=== PATIENT | female | born 1960 | race Two or more races ===

== ENCOUNTER 2017-09-15 19:45 | Emergency (ER) | payer MEDICAID ==
[2017-09-15] MEDS ORDERED: NICARDIPINE HCL RTU, ISO-OS 20 MG/200 ML RTUINJ IV PRN (21:13)
--- NOTE | 2017-09-15 21:14 | ER Document Report ---
ED Dizziness/Weakness - General Mode of Arrival: Ambulatory Information source: Patient TRAVEL OUTSIDE OF THE U.S. IN LAST 30 DAYS: No <RICHARD GILMAN - Last Filed: 09/16/17 02:49> <JEROME MOORE - Last Filed: 09/16/17 03:20> - General Chief Complaint: Dizziness Stated Complaint: BLOOD PRESSURE PROBLEMS Time Seen by Provider: 09/15/17 20:57 Notes: Patient is a 57 year old female with hypertension presents to the emergency department complaining of dizziness and a headache onset yesterday. Patient is vague with her history. Patient states she has taken an aspirin for her headache. Patient denies nausea, vomiting, diarrhea, abdominal pain or inability to move extremities. Patient states she has hypertension but has stopped taking medications years ago. (RICHARD GILMAN) - Related Data Allergies/Adverse Reactions: No Known Allergies Allergy (Unverified 09/16/17 00:24) Past Medical History - General Information source: Patient - Social History Smoking Status: Unknown if Ever Smoked - Past Medical History Cardiac Medical History: Reports: Hx Hypertension - no longer takes medication for <RICHARD GILMAN - Last Filed: 09/16/17 02:49> - Social History Family History: Reviewed & Not Pertinent Malignancy Medical History: Reports: Hx Cervical Cancer, Hx Ovarian Cancer <JEROME MOORE - Last Filed: 09/16/17 03:20> Review of Systems - Review of Systems Constitutional: No symptoms reported EENT: No symptoms reported Cardiovascular: See HPI, Dizziness Respiratory: No symptoms reported Gastrointestinal: No symptoms reported Genitourinary: No symptoms reported Female Genitourinary: No symptoms reported Musculoskeletal: No symptoms reported Skin: No symptoms reported Hematologic/Lymphatic: No symptoms reported Neurological/Psychological: See HPI, Headaches -: Yes All other systems reviewed and negative <RICHARD GILMAN - Last Filed: 09/16/17 02:49> Physical Exam - Vital signs Interpretation: Hypertensive, Bradycardic, Tachypneic - HEENT Head: Normocephalic, Atraumatic Conjunctiva: Normal Cornea: Normal Mucous membranes: Dry - Respiratory Respiratory status: No respiratory distress Chest status: Nontender Breath sounds: Normal - Cardiovascular Rhythm: Regular, Bradycardia - Abdominal Inspection: Normal Distension: No distension Bowel sounds: Normal Tenderness: Nontender Organomegaly: No organomegaly - Back Back: Normal, Nontender - Extremities General upper extremity: Normal inspection, Nontender, Normal color, Normal ROM , Normal temperature General lower extremity: Normal inspection, Nontender, Normal color, Normal ROM , Normal temperature, Normal weight bearing. No: Sushil's sign - Neurological Neuro grossly intact: Yes Cognition: Normal Orientation: AAOx4 Nestor Coma Scale Eye Opening: Spontaneous Nestor Coma Scale Verbal: Oriented Cordell Coma Scale Motor: Obeys Commands Nestor Coma Scale Total: 15 Speech: Normal Motor strength normal: LUE, RUE, LLE, RLE Sensory: Normal - Psychological Associated symptoms: Normal affect, Normal mood - Skin Skin Temperature: Warm Skin Moisture: Dry Skin Color: Normal <JEROME MOORE - Last Filed: 09/16/17 03:20> - Vital signs Vitals: Temp Pulse Resp BP Pulse Ox 98.6 F 43 L 19 240/68 H 100 09/15/17 20:27 09/15/17 20:27 09/15/17 20:27 09/15/17 20:27 09/15/17 20:27 Course - Laboratory Result Diagrams: 09/15/17 21:13 09/15/17 21:13 - Consults Dr. Valencia Time consulted: 21:15 - Consulted Dr. Valencia, recommended a nicardipine drip. Dr. Valencia. Time consulted: 21:37 - Reviewed EKG and determined heart block. Recommends repeating EKG when blood pressure decreases. [facility] Time consulted: 23:34 - [facility] accepts [facility]inet for transfer. [employer] Recommend stopping nicardipine starting hydralazine. <RICHARD GILMAN - Last Filed: 09/16/17 02:49> - Laboratory Result Diagrams: 09/15/17 21:13 09/15/17 21:13 <JEROME MOORE - Last Filed: 09/16/17 03:20> - Re-evaluation Re-evalutation: 09/15/17 22:17 Called [facility] who stated they do not have any ICU or IMCU beds. (RICHARD GILMAN) 09/16/17 01:05 Patient is a 57-year-old female who comes in complaining of dizziness for the last 2 days. Worse with movement. Patient is noted to be bradycardic with complete heart block on EKG. She is also hypertensive with a blood pressure of 260/100. Patient is supposed to take blood pressure medications but has not for years and does not have a primary care doctor. Patient initially denied any other medical problems and then later told nursing staff that she had a history of cervical and ovarian cancer which has been treated and she is not actively getting treatment for. Patient was discussed with cardiology here who initially recommended nicardipine drip and Lasix. This was initiated and patient's blood pressure came down. Heart rate may remain the same. 2 more EKGs were performed with same finding of complete heart block. Patient was discussed with [facility] who does not have any beds. [facility] was contacted. No beds available. Patient was discussed with Dr. Demarcus Duncan, who will accept the patient for transport. There were initially no beds available. Recommends stopping nicardipine drip and giving hydralazine if needed. Findings were discussed with patient as well as need for transfer due to complete heart block and no availability of electrophysiology cardiology here. Patient is agreeable to this plan. Patient was going to go by ground but there is no ground transport available via MICU truck. According to [facility] protocol, patient will be transported via air. Patient is agreeable to this plan. She has remained stable in the emergency department and her blood pressure has trended down nicely. Of note, no acute findings on blood work, chest x-ray, or head CT. Stable at time of transfer to [facility]. (JEROME MOORE) - Vital Signs Vital signs: Temp Pulse Resp BP Pulse Ox 98.3 F 43 L 16 184/77 H 100 09/16/17 01:02 09/15/17 20:27 09/16/17 01:02 09/16/17 01:02 09/16/17 01:02 - Laboratory Laboratory results interpreted by me: 09/15/17 09/15/17 21:13 21:13 RDW 14.2 H Glucose 120 H Critical Care Note - Critical Care Note Total time excluding time spent on procedures (mins): 120 - Evaluation and management of hypertensive crisis, symptomatic bradycardia with complete heart block, consultation with specialist, coordination of transfer, multiple re- evaluations, counseling of patient family <EJROME MOORE - Last Filed: 09/16/17 03:20> Discharge <RICHARD GIMLAN - Last Filed: 09/16/17 02:49> <JEROME MOORE - Last Filed: 09/16/17 03:20> - Discharge Clinical Impression: Complete heart block, Hypertensive urgency, Dizziness Condition: Stable Disposition: [facility] Scribe Attestation: 09/16/17 03:20 I personally performed the services described in the documentation, reviewed and edited the documentation which was dictated to the scribe in my presence, and it accurately records my words and actions. (JEROME MOORE) Scribe Documentation - Scribe Written by Yousufe:: Donal Sy, 09/15/2017 21:20 acting as scribe for :: Skip <RICHARD GILMAN - Last Filed: 09/16/17 02:49>
[2017-09-15] MEDS ORDERED: FUROSEMIDE INJ/PF 40 MG/4 ML SDV IV ONE (21:16)
[2017-09-15 21:31] LABS: ABSOLUTE EOSINOPHILS # (AUTO) 0.1 10^3/uL (0.0-0.6); ABSOLUTE LYMPHOCYTES (AUTO) 2.4 10^3/uL (0.5-4.7); ABSOLUTE MONOCYTES (AUTO) 0.4 10^3/uL (0.1-1.4); ABSOLUTE NEUT (AUTO) 3.3 10^3/uL (1.7-8.2); BASOPHILS % (AUTO) 0.7 % (0-2); EOSINOPHILS % (AUTO) 1.7 % (0-6); HEMATOCRIT 40.2 % (36.0-47.0); HEMOGLOBIN 13.9 g/dL (12.0-15.5); LYMPHOCYTES % (AUTO) 38.4 % (13-45); MEAN CORPUSCULAR HEMOGLOBIN 29.9 pg (27.0-33.4); MEAN CORPUSCULAR HGB CONC 34.6 g/dL (32.0-36.0); MEAN CORPUSCULAR VOLUME 86 fl (80-97); MONOCYTES % (AUTO) 5.9 % (3-13); PLATELET COUNT 290 10^3/uL (150-450); RED BLOOD COUNT 4.66 10^6/uL (3.72-5.28); RED CELL DISTRIBUTION WIDTH 14.2 % (11.5-14.0); SEGMENTED NEUTROPHILS % (AUTO) 53.3 % (42-78); TOTAL CELLS COUNTED % (AUTO) 100 %; WHITE BLOOD COUNT 6.3 10^3/uL (4.0-10.5)
[2017-09-15 21:41] LABS: INTERNATIONAL RATION (INR) 1.03; PROTHROMBIN TIME 14.1 SEC (11.4-15.4)
[2017-09-15 21:50] LABS: ALANINE AMINOTRANSFERASE 25 U/L (9-52); ALBUMIN 4.4 g/dL (3.5-5.0); ALKALINE PHOSPHATASE 66 U/L (38-126); ANION GAP 11 (5-19); ASPARTATE AMINO TRANSFERASE 31 U/L (14-36); BILIRUBIN,DIRECT 0.2 mg/dL (0.0-0.4); BILIRUBIN,TOTAL 1.2 mg/dL (0.2-1.3); BLOOD UREA NITROGEN 15 mg/dL (7-20); CALCIUM 9.6 mg/dL (8.4-10.2); CARBON DIOXIDE 30 mmol/L (22-30); CHLORIDE 103 mmol/L (98-107); CREATINE KINASE 59 U/L (30-135); GLUCOSE 120 mg/dL (75-110); SODIUM 144.4 mmol/L (137-145); TOTAL PROTEIN 7.2 g/dL (6.3-8.2)
[2017-09-15 22:02] LABS: CREATINE KINASE MB 0.26 ng/mL (<4.55)
[2017-09-15 22:05] LABS: TROPONIN I < 0.012 ng/mL
--- NOTE | 2017-09-15 22:12 | RADIOLOGY REPORT (SQ) ---
EXAM DESCRIPTION: CT HEAD WITHOUT COMPLETED DATE/TIME: 09/15/2017 10:02 pm REASON FOR STUDY: Head, HTN COMPARISON: None. TECHNIQUE: Axial images acquired through the brain without intravenous contrast. Images reviewed wi th bone, brain and subdural windows. Images stored on PACS. All CT scanners at this facility use dose modulation, iterative reconstruction, and/or weight based d osing when appropriate to reduce radiation dose to as low as reasonably achievable (ALARA). [facility]: Dose Right [facility]: CareDose [facility]: Dose Right [facility]: Teradose 4D [facility]: [place] RADIATION DOSE: CT Rad equipment meets quality standard of care and radiation dose reduction techniq ues were employed. CTDIvol: 55.2 mGy. DLP: 1056 mGy-cm. mGy. LIMITATIONS: None. FINDINGS: VENTRICLES: Normal size and contour. CEREBRUM: No masses. No hemorrhage. No midline shift. No evidence for acute infarction. Normal gra y/white matter differentiation. No areas of low density in the white matter. CEREBELLUM: No masses. No hemorrhage. No alteration of density. No evidence for acute infarction. EXTRAAXIAL SPACES: No fluid collections. No masses. ORBITS AND GLOBE: No intra- or extraconal masses. Normal contour of globe without masses. CALVARIUM: No fracture. PARANASAL SINUSES: No fluid or mucosal thickening. SOFT TISSUES: No mass or hematoma. OTHER: No other significant finding. IMPRESSION: No acute intracranial findings. EVIDENCE OF ACUTE STROKE: NO. COMMENT: Quality ID # [id number]: Final reports with documentation of one or more dose reduction techniques (e.g., Automated exposure control, adjustment of the mA and/or kV according to patient size, use of iterative reconstruction technique) TECHNICAL DOCUMENTATION: JOB ID: [id number] 2010 [employer]- All Rights Reserved Reading location - IP/workstation name: [email or web address]
--- NOTE | 2017-09-15 22:15 | RADIOLOGY REPORT (SQ) ---
EXAM DESCRIPTION: CHEST SINGLE VIEW COMPLETED DATE/TIME: 09/15/2017 10:03 pm REASON FOR STUDY: HTN urgency COMPARISON: None. EXAM PARAMETERS: NUMBER OF VIEWS: One view. TECHNIQUE: Single frontal radiographic view of the chest acquired. RADIATION DOSE: NA LIMITATIONS: None. FINDINGS: LUNGS AND PLEURA: No consolidation, masses or pneumothorax. No pleural effusion. MEDIASTINUM AND HILAR STRUCTURES: No masses. Contour normal. HEART AND VASCULAR STRUCTURES: Heart upper limits of normal in size. Normal vasculature. BONES: No acute findings. HARDWARE: None in the chest. OTHER: No other significant finding. IMPRESSION: NO ACUTE RADIOGRAPHIC FINDING IN THE CHEST. TECHNICAL DOCUMENTATION: JOB ID: [id number] 2010 [employer]- All Rights Reserved Reading location - IP/workstation name: [employer]
[2017-09-15] MEDS ORDERED: HYDRALAZINE HCL INJ/PF 20 MG/1 ML SDV IV ONE (23:31)
[2017-09-16 00:15] LABS: PHOSPHORUS 3.9 mg/dL (2.5-4.5)
[2017-09-16 01:25] VITALS: BP 184/77
--- NOTE | 2017-09-16 11:43 | EKG REPORT ---
SEVERITY:- ABNORMAL ECG - COMPLETE AV BLOCK, A-RATE [address] DEPRESSION, ANTEROLATERAL LEADS : Confirmed by: Mary Alvarenga MD 16-Sep-2017 11:43:29
--- NOTE | 2017-09-16 11:43 | EKG REPORT ---
SEVERITY:- ABNORMAL ECG - COMPLETE AV BLOCK, A-RATE [address] DEPRESSION, ANTEROLATERAL LEADS : Confirmed by: Mary Alvarenga MD 16-Sep-2017 11:43:21
== END 2017-09-16 01:25 | disposition short-term general hospital (02) ==
LOC: ER 19:45
DX: R42 Dizziness and giddiness (principal); I10 Essential (primary) hypertension; R51 Headache; Z85.41 Personal history of malignant neoplasm of cervix uteri; Z85.43 Personal history of malignant neoplasm of ovary; I44.2 Atrioventricular block, complete; I16.0 Hypertensive urgency
CPT/HCPCS: 93005; 99291; 99292; 96375; 96365; 96366; 36415; 82553; 82550; 83735; 84100; 84443; 85025; 85610; 80053; 84484; 71045; 70450; 93010; J1940; J0360; J3490

== ENCOUNTER 2017-10-31 11:38 | Emergency (ER) | payer MEDICAID, OTHER ==
[2017-10-31 13:40] LABS: ABSOLUTE LYMPHOCYTES (AUTO) 1.9 10^3/uL (0.5-4.7); ABSOLUTE MONOCYTES (AUTO) 0.3 10^3/uL (0.1-1.4); ABSOLUTE NEUT (AUTO) 4.9 10^3/uL (1.7-8.2); BASOPHILS % (AUTO) 0.6 % (0-2); EOSINOPHILS % (AUTO) 0.6 % (0-6); HEMATOCRIT 43.1 % (36.0-47.0); HEMOGLOBIN 14.7 g/dL (12.0-15.5); LYMPHOCYTES % (AUTO) 26.1 % (13-45); MEAN CORPUSCULAR HEMOGLOBIN 29.3 pg (27.0-33.4); MEAN CORPUSCULAR HGB CONC 34.1 g/dL (32.0-36.0); MEAN CORPUSCULAR VOLUME 86 fl (80-97); PLATELET COUNT 304 10^3/uL (150-450); RED BLOOD COUNT 5.01 10^6/uL (3.72-5.28); RED CELL DISTRIBUTION WIDTH 14.1 % (11.5-14.0); SEGMENTED NEUTROPHILS % (AUTO) 68.7 % (42-78); TOTAL CELLS COUNTED % (AUTO) 100 %; WHITE BLOOD COUNT 7.1 10^3/uL (4.0-10.5)
[2017-10-31 14:02] LABS: ALANINE AMINOTRANSFERASE 30 U/L (9-52); ALBUMIN 5.1 g/dL (3.5-5.0); ALKALINE PHOSPHATASE 80 U/L (38-126); ANION GAP 13 (5-19); ASPARTATE AMINO TRANSFERASE 30 U/L (14-36); BILIRUBIN,DIRECT 0.1 mg/dL (0.0-0.4); BLOOD UREA NITROGEN 10 mg/dL (7-20); CALCIUM 9.8 mg/dL (8.4-10.2); CARBON DIOXIDE 29 mmol/L (22-30); CHLORIDE 104 mmol/L (98-107); CREATINE KINASE 66 U/L (30-135); GLUCOSE 90 mg/dL (75-110); POTASSIUM 3.7 mmol/L (3.6-5.0); SODIUM 145.8 mmol/L (137-145); TOTAL PROTEIN 8.4 g/dL (6.3-8.2)
--- NOTE | 2017-10-31 14:08 | RADIOLOGY REPORT (SQ) ---
EXAM DESCRIPTION: CHEST 2 VIEWS COMPLETED DATE/TIME: 10/31/2017 1:55 pm REASON FOR STUDY: sob COMPARISON: 09/15/2017 EXAM PARAMETERS: NUMBER OF VIEWS: two views TECHNIQUE: Digital Frontal and Lateral radiographic views of the chest acquired. RADIATION DOSE: NA LIMITATIONS: none FINDINGS: LUNGS AND PLEURA: No opacities, masses or pneumothorax. No pleural effusion. MEDIASTINUM AND HILAR STRUCTURES: No masses or contour abnormalities. HEART AND VASCULAR STRUCTURES: Heart normal size. No evidence for failure. BONES: No acute findings. HARDWARE: Left chest wall cardiac device OTHER: No other significant finding. IMPRESSION: NO ACUTE RADIOGRAPHIC FINDING IN THE CHEST. TECHNICAL DOCUMENTATION: JOB ID: [id number] [employer]- All Rights Reserved Reading location - IP/workstation name: [email or web address]
[2017-10-31 14:14] LABS: CREATINE KINASE MB 0.61 ng/mL (<4.55)
[2017-10-31 14:17] LABS: TROPONIN I < 0.012 ng/mL
[2017-10-31 15:20] VITALS: BP 149/75
--- NOTE | 2017-10-31 15:29 | ER Document Report ---
ED General - General Chief Complaint: Dizziness Stated Complaint: NUMBNESS,BLOOD PREESURE Time Seen by Provider: 10/31/17 13:10 TRAVEL OUTSIDE OF THE U.S. IN LAST 30 DAYS: No - HPI Patient complains to provider of: Numbness pressure intermittent dizziness Notes: There is Jyoti of the morning wanting his Xanax to she is patient coming in for evaluation of the above-stated symptoms states ongoing for many weeks. Patient states also increased stress. Patient denies any nausea vomiting chest pain patient recently was seen here in the [facility] 2 provided for a pacemaker due to third-degree heart block. 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 Patient denies any fever chills nausea vomiting diarrhea. Resting comfortably upon my evaluation. - Related Data Allergies/Adverse Reactions: No Known Allergies Allergy (Verified 10/31/17 11:40) Past Medical History - Social History Smoking Status: Never Smoker Chew tobacco use (# tins/day): No Frequency of alcohol use: None Drug Abuse: None Family History: Reviewed & Not Pertinent Patient has suicidal ideation: No Patient has homicidal ideation: No - Past Medical History Cardiac Medical History: Reports: Hx Hypertension - no longer takes medication for Renal/ Medical History: Denies: Hx Peritoneal Dialysis Malignancy Medical History: Reports: Hx Cervical Cancer, Hx Ovarian Cancer Past Surgical History: Reports: Hx Cardiac Surgery - pacemaker Review of Systems - Review of Systems Constitutional: Other - Numbness tingling dizziness EENT: No symptoms reported Cardiovascular: No symptoms reported Respiratory: No symptoms reported Gastrointestinal: No symptoms reported Genitourinary: No symptoms reported Female Genitourinary: No symptoms reported Musculoskeletal: No symptoms reported Skin: No symptoms reported Hematologic/Lymphatic: No symptoms reported Neurological/Psychological: No symptoms reported Physical Exam - Vital signs Vitals: Temp Pulse Resp BP Pulse Ox 98.5 F 86 18 152/80 H 97 10/31/17 12:19 10/31/17 12:19 10/31/17 12:19 10/31/17 12:19 10/31/17 12:19 Interpretation: Normal - General General appearance: Appears well, Alert - HEENT Head: Normocephalic, Atraumatic Eyes: Normal Pupils: PERRL - Respiratory Respiratory status: No respiratory distress Chest status: Nontender Breath sounds: Normal Chest palpation: Normal Notes: Pacemaker scar intact to the left upper chest - Cardiovascular Rhythm: Regular Heart sounds: Normal auscultation Murmur: No - Abdominal Inspection: Normal Distension: No distension Bowel sounds: Normal Tenderness: Nontender Organomegaly: No organomegaly - Back Back: Normal, Nontender - Extremities General upper extremity: Normal inspection, Nontender, Normal color, Normal ROM , Normal temperature General lower extremity: Normal inspection, Nontender, Normal color, Normal ROM , Normal temperature, Normal weight bearing. No: Sushil's sign - Neurological Neuro grossly intact: Yes Cognition: Normal Orientation: AAOx4 Nestor Coma Scale Eye Opening: Spontaneous [place] Coma Scale Verbal: Oriented [place] Coma Scale Motor: Obeys Commands Nestor Coma Scale Total: 15 Speech: Normal Motor strength normal: LUE, RUE, LLE, RLE Sensory: Normal - Psychological Associated symptoms: Normal affect, Normal mood - Skin Skin Temperature: Warm Skin Moisture: Dry Skin Color: Normal Course - Re-evaluation Re-evalutation: 10/31/17 15:24 The patient has nonspecific symptoms as the patient's nonspecific symptoms is not suggestive of pulmonary embolus, cardiac ischemia, aortic dissection, or other serious etiology. Given the extremely low risk of these diagnoses further testing and evaluation for these possibilities does not appear to be indicated at this time. The patient has been instructed to return if the symptoms worsen or change in any way. Patient more likely has underlying anxiety. Patient will be given a prescription for Vistaril to help out with her symptoms. Patient will be discharged home. - Vital Signs Vital signs: Temp Pulse Resp BP Pulse Ox 98.4 F 77 17 149/75 H 97 10/31/17 15:20 10/31/17 15:20 10/31/17 15:20 10/31/17 15:20 10/31/17 12:19 - Laboratory Result Diagrams: 10/31/17 13:21 10/31/17 13:21 Laboratory results interpreted by me: 10/31/17 10/31/17 13:21 13:21 RDW 14.1 H Sodium 145.8 H Total Protein 8.4 H Albumin 5.1 H Discharge - Discharge Clinical Impression: Numbness and tingling, Lightheaded Condition: Good Instructions: Numbness or Paresthesia ([facility]), Anxiety ([facility]) Additional Instructions: Your laboratory studies chest x-ray today did not show any critical pathology. Some of the symptoms that you are prescribing may be due to underlying anxiety due to your recent medical history. We recommend that we start her on a medication called Vistaril. Please take this at night as prescribed. Please be aware this medication may make you sleepy. Follow-up with your primary care physician return to ER symptoms worsen. Prescriptions: Hydroxyzine Pamoate [Vistaril 25 mg Capsule] 25 mg PO QHS #14 capsule
--- NOTE | 2017-10-31 23:16 | EKG REPORT ---
SEVERITY:- ABNORMAL ECG - ATRIAL-SENSED VENTRICULAR-PACED RHYTHM : Confirmed by: Rafael Valencia 31-Oct-2017 23:16:35
== END 2017-10-31 15:28 | disposition home or self-care (01) ==
LOC: ER 11:38
DX: R42 Dizziness and giddiness (principal); R20.0 Anesthesia of skin; R20.2 Paresthesia of skin; I10 Essential (primary) hypertension; I44.2 Atrioventricular block, complete; Z95.0 Presence of cardiac pacemaker; Z85.41 Personal history of malignant neoplasm of cervix uteri; Z85.43 Personal history of malignant neoplasm of ovary
CPT/HCPCS: 36415; 71046; 80053; 82550; 82553; 84484; 85025; 93005; 93010; 99284

== ENCOUNTER 2018-06-08 20:28 | Emergency (ER) | payer MEDICAID, OTHER ==
[2018-06-08 22:27] LABS: ABSOLUTE BASOPHILS # (AUTO) 0.1 10^3/uL (0.0-0.2); ABSOLUTE EOSINOPHILS # (AUTO) 0.2 10^3/uL (0.0-0.6); ABSOLUTE LYMPHOCYTES (AUTO) 2.5 10^3/uL (0.5-4.7); ABSOLUTE MONOCYTES (AUTO) 0.5 10^3/uL (0.1-1.4); ABSOLUTE NEUT (AUTO) 4.6 10^3/uL (1.7-8.2); BASOPHILS % (AUTO) 0.9 % (0-2); EOSINOPHILS % (AUTO) 2.5 % (0-6); HEMATOCRIT 38.9 % (36.0-47.0); HEMOGLOBIN 13.4 g/dL (12.0-15.5); LYMPHOCYTES % (AUTO) 31.5 % (13-45); MEAN CORPUSCULAR HEMOGLOBIN 29.9 pg (27.0-33.4); MEAN CORPUSCULAR HGB CONC 34.4 g/dL (32.0-36.0); MEAN CORPUSCULAR VOLUME 87 fl (80-97); MONOCYTES % (AUTO) 6.1 % (3-13); PLATELET COUNT 351 10^3/uL (150-450); RED BLOOD COUNT 4.49 10^6/uL (3.72-5.28); RED CELL DISTRIBUTION WIDTH 13.2 % (11.5-14.0); TOTAL CELLS COUNTED % (AUTO) 100 %; WHITE BLOOD COUNT 7.9 10^3/uL (4.0-10.5)
[2018-06-08 22:35] LABS: INTERNATIONAL RATION (INR) 0.98; PROTHROMBIN TIME 13.5 SEC (11.4-15.4)
[2018-06-08 22:42] LABS: ALANINE AMINOTRANSFERASE 21 U/L (9-52); ALBUMIN 4.7 g/dL (3.5-5.0); ALKALINE PHOSPHATASE 93 U/L (38-126); ANION GAP 9 (5-19); ASPARTATE AMINO TRANSFERASE 28 U/L (14-36); BILIRUBIN,DIRECT 0.1 mg/dL (0.0-0.4); BILIRUBIN,TOTAL 0.4 mg/dL (0.2-1.3); BLOOD UREA NITROGEN 17 mg/dL (7-20); CALCIUM 9.6 mg/dL (8.4-10.2); CARBON DIOXIDE 30 mmol/L (22-30); CHLORIDE 105 mmol/L (98-107); CREATINE KINASE 58 U/L (30-135); GLUCOSE 97 mg/dL (75-110); POTASSIUM 4.2 mmol/L (3.6-5.0); SODIUM 143.9 mmol/L (137-145); TOTAL PROTEIN 7.6 g/dL (6.3-8.2)
--- NOTE | 2018-06-08 22:54 | RADIOLOGY REPORT (SQ) ---
EXAM DESCRIPTION: XR CHEST 1 VIEW COMPLETED DATE/TME: 06/08/2018 22:17 CLINICAL HISTORY: 58 years Female, sob/cp COMPARISON: 09/15/17 NUMBER OF VIEWS/TECHNIQUE: 1/AP FINDINGS: Adequate lung volume, clear parenchyma, normal cardiac silhouette, and intact bony thorax. Left cardiac stimulator with leads. IMPRESSION: No acute cardiopulmonary findings.
[2018-06-08 22:56] LABS: CREATINE KINASE MB < 0.22 ng/mL (<4.55); TROPONIN I < 0.012 ng/mL
[2018-06-08] MEDS ORDERED: KETOROLAC TROMETHAMINE INJ/PF 30 MG/1 ML SDV IV ONE (22:57)
[2018-06-08] MEDS ORDERED: NORMAL SALINE 1000 ML 1,000 ML IV ONE (22:57)
--- NOTE | 2018-06-08 23:02 | ER Document Report ---
ED General - General Chief Complaint: Chest Pain Stated Complaint: DIZZINESS Time Seen by Provider: 06/08/18 22:17 TRAVEL OUTSIDE OF THE [place].S. IN LAST 30 DAYS: No - HPI Patient complains to provider of: Chest pain dizziness dental pain Notes: Patient coming in for evaluation of chest pain dizziness and dental pain. States pain is ongoing in her chest with the dizziness approximately greater than a week. Patient states that she is not done any new physical activity however does active during the day. Patient states that her pain left side of the chest underneath the bra line and to the left flank. Patient denies any fevers chills nausea vomiting denies any urinary diarrhea. Patient states that the pain is increased whenever she moves. Denies any rashes to the area. Patient states she has dental pain lower left molar. Patient states she has been seen by multiple dentist however because of her pacemaker and new PCP that she cannot get cardiac clinic for clearance to have her tooth removed. Patient otherwise is resting comfortably upon my evaluation. - Related Data Allergies/Adverse Reactions: No Known Allergies Allergy (Verified 10/31/17 11:40) Past Medical History - Social History Smoking Status: Unknown if Ever Smoked Family History: Reviewed & Not Pertinent - Past Medical History Cardiac Medical History: Reports: Hx Hypertension - no longer takes medication for Renal/ Medical History: Denies: Hx Peritoneal Dialysis Malignancy Medical History: Reports: Hx Cervical Cancer, Hx Ovarian Cancer Past Surgical History: Reports: Hx Cardiac Surgery - pacemaker Review of Systems - Review of Systems Constitutional: No symptoms reported EENT: Other - Dental pain Cardiovascular: Chest pain Respiratory: No symptoms reported Gastrointestinal: No symptoms reported Genitourinary: No symptoms reported Female Genitourinary: No symptoms reported Musculoskeletal: No symptoms reported Skin: No symptoms reported Hematologic/Lymphatic: No symptoms reported Neurological/Psychological: No symptoms reported -: Yes All other systems reviewed and negative Physical Exam - Vital signs Vitals: Temp Pulse Resp BP Pulse Ox 99.0 F 74 18 145/69 H 98 06/08/18 21:00 06/08/18 21:00 06/08/18 21:00 06/08/18 21:00 06/08/18 21:00 Interpretation: Normal - General General appearance: Appears well, Alert - HEENT Head: Normocephalic, Atraumatic Eyes: Normal Pupils: PERRL Notes: Left lower molar with diffuse dental disease no signs of abscess - Respiratory Respiratory status: No respiratory distress Chest status: Nontender Breath sounds: Normal Chest palpation: Normal - Cardiovascular Rhythm: Regular Heart sounds: Normal auscultation Murmur: No - Abdominal Inspection: Normal Distension: No distension Bowel sounds: Normal Tenderness: Nontender Organomegaly: No organomegaly - Back Back: Normal, Tender - Left flank pain on palpation no CVA tenderness exactly pain is reproduced following the lower rib segments of the chest wall - Extremities General upper extremity: Normal inspection, Nontender, Normal color, Normal ROM, Normal temperature General lower extremity: Normal inspection, Nontender, Normal color, Normal ROM, Normal temperature, Normal weight bearing. No: Sushil's sign - Neurological Neuro grossly intact: Yes Cognition: Normal Orientation: AAOx4 Nestor Coma Scale Eye Opening: Spontaneous Kim Coma Scale Verbal: Oriented Kim Coma Scale Motor: Obeys Commands Nestor Coma Scale Total: 15 Speech: Normal Motor strength normal: LUE, RUE, LLE, RLE Sensory: Normal - Psychological Associated symptoms: Normal affect, Normal mood - Skin Skin Temperature: Warm Skin Moisture: Dry Skin Color: Normal Course - Re-evaluation Re-evalutation: 06/08/18 23:02 Pain seems to be more muscle skeletal on physical examination we will continue with cardiac and urinalysis for complete workup. 06/09/18 04:02 Patient's workup did not show any critical pathology. The patient has atypical chest pain as the patient's chest pain is not suggestive of pulmonary embolus, cardiac ischemia, aortic dissection, or other serious etiology. Given the extremely low risk of these diagnoses further testing and evaluation for these possibilities does not appear to be indicated at this time. The patient has been instructed to return if the symptoms worsen or change in any way. Question again by the daughter at bedside about the patient's dental disease. Explained to the patient would recommend follow-up with the [facility] dental clinics listed [facility]. Because of the diffuse dental disease will start patient on penicillin to prevent any infection. - Vital Signs Vital signs: Temp Pulse Resp BP Pulse Ox 99.0 F 74 17 128/63 H 97 06/08/18 21:00 06/08/18 21:00 06/09/18 01:01 06/09/18 01:01 06/09/18 01:01 - Laboratory Result Diagrams: 06/08/18 22:14 06/08/18 22:14 Laboratory results interpreted by me: 06/08/18 23:12 Ur Leukocyte Esterase TRACE H Urine Ascorbic Acid 40 H Discharge - Discharge Clinical Impression: Chest wall pain, Dental disease Condition: Good Disposition: HOME, SELF-CARE Instructions: Anti-Inflammatory Medication ([facility]), Chest Wall Pain ([facility]), Dentist, Dental Infection or Abscess ([facility]) Additional Instructions: Your evaluation today is consistent with muscle skeletal pain or chest wall pain. We recommend taking Tylenol Motrin for your pain control. Your evaluation of your teeth does show a dental fracture of the last molar that may be becoming infected. I highly recommend taking the antibiotics as prescribed please make sure you rinse your mouth out after eating. I would recommend eating soft foods. I would highly recommend following up with 1 of the dental clinics listed. He may have to travel to [facility] to see the dental school for treatment. Return to ER symptoms worsen take medications as prescribed. Prescriptions: Ibuprofen [Motrin 600 mg Tablet] 600 mg PO Q8HP PRN #21 tablet PRN Reason: Penicillin V Potassium [Penicillin Vk 500 mg Tablet] 500 mg PO BID #20 tablet Forms: Return to Work
[2018-06-08 23:40] LABS: APPEARANCE,URINE CLEAR; BILIRUBIN,URINE NEGATIVE (NEGATIVE); COLOR,URINE YELLOW; GLUCOSE, URINE NEGATIVE (NEGATIVE); KETONES,URINE NEGATIVE (NEGATIVE); LEUKOCYTE ESTERASE,URINE TRACE (NEGATIVE); NITRITE,URINE NEGATIVE (NEGATIVE); PROTEIN,URINE NEGATIVE (NEGATIVE); URINE SPECIFIC GRAVITY 1.013; UROBILINOGEN,URINE NEGATIVE mg/dL (<2.0)
[2018-06-09] MEDS ORDERED: PENICILLIN V POTASSIUM 500 MG TABLET PO ONE (00:41)
[2018-06-09 01:17] VITALS: BP 128/63
--- NOTE | 2018-06-09 22:21 | EKG REPORT ---
SEVERITY:- ABNORMAL ECG - ATRIAL-SENSED VENTRICULAR-PACED RHYTHM : Confirmed by: Rafael Valencia 09-Jun-2018 22:20:50
== END 2018-06-09 01:30 | disposition home or self-care (01) ==
LOC: ER 20:28
DX: R07.89 Other chest pain (principal); K08.89 Other specified disorders of teeth and supporting structures; R42 Dizziness and giddiness; R10.9 Unspecified abdominal pain; I10 Essential (primary) hypertension; Z95.0 Presence of cardiac pacemaker; Z85.41 Personal history of malignant neoplasm of cervix uteri; Z85.43 Personal history of malignant neoplasm of ovary
CPT/HCPCS: 93005; 99284; 96361; 96374; 36415; 87086; 82553; 82550; 83690; 83735; 85025; 85610; 80053; 81001; 84484; 71045; 93010; J1885; J7030